=== PATIENT | female | born 1950 | race Caucasian/White ===

== ENCOUNTER 2018-06-23 11:12 | Day surgery (SDC) | payer MEDICARE, MEDICAID ==
[2018-06-23 12:29] VITALS: BMI 40.3
[2018-06-23] MEDS ORDERED: Lactated Ringer's 500 ML IV ONE (12:34)
[2018-06-23] MEDS ORDERED: Propofol 10 mg/ml Inj (20 ML) ONE (14:25)
[2018-06-23] MEDS ORDERED: Midazolam 2 MG/2 ML VIAL ONE (14:25)
[2018-06-23 14:53] VITALS: PULSE 85; TEMP 98; O2SAT 95
[2018-06-23 15:05] VITALS: BP 130/83; RESP 14
== END 2018-06-23 16:58 | disposition home or self-care (01) ==
LOC: H.ENDO 11:12
PROVIDERS: ATTEND Internal Medicine Gastroenterology
DX: K30 Functional dyspepsia (principal); M94.0 Chondrocostal junction syndrome [Tietze]; K21.0 Gastro-esophageal reflux disease with esophagitis; K31.89 Other diseases of stomach and duodenum
CPT/HCPCS: 43239; 88305; J2001; J2250; J2704; J7120